=== PATIENT | female | born 1965 ===

== ENCOUNTER 2018-10-07 11:28 | Emergency (ER) | payer OTHER ==
[2018-10-07 11:35] VITALS: TEMP 98
[2018-10-07 11:37] VITALS: BMI 42.7
--- NOTE | 2018-10-07 13:04 | ED PDOC ---
HPI: Psych/Substance Abuse Time Seen by Provider: 10/07/18 12:17 Chief Complaint (Nursing): Psychiatric Evaluation Chief Complaint (Provider): Depression History Per: Patient History/Exam Limitations: no limitations Onset/Duration Of Symptoms: Days Additional Complaint(s): 53 yo female with history of depression presents for evaluation of depression. Pt states she has not taken her medications for depression and anxiety in the last month. Pt called PMD and was told she had to see her psychiatrist at [facility]. Pt went in today for appointment. PT states she was tearful during appointment. Pt was sent to ER for psychiatric evaluation. Past Medical History Reviewed: Historical Data, Nursing Documentation, Vital Signs Vital Signs: Last Vital Signs Temp 98 F 10/07/18 11:33 Pulse 88 10/07/18 11:33 Resp 18 10/07/18 11:33 BP 156/93 H 10/07/18 11:33 Pulse Ox 98 10/07/18 11:33 - Medical History PMH: Arthritis - Surgical History Surgical History: No Surg Hx - Family History Family History: States: Unknown Family Hx - Living Arrangements Living Arrangements: With Family - Social History Current smoker - smoking cessation education provided: No - Home Medications Home Medications: Ambulatory Orders Medication Instructions Recorded Amoxicillin 875 mg PO BID #20 tab 12/11/15 Fluticasone Propionate [Flonase] 4 spr IN DAILY #0 bottle 12/11/15 Guaifenesin/Pseudoephedrne HCl 1 ter PO BID PRN #20 ter 12/11/15 [Mucinex D 600 mg-60 mg] Cyclobenzaprine [Cyclobenzaprine 10 mg PO BID #15 tab 09/24/16 HCl] Ketorolac Tromethamine [Toradol] 10 mg PO BID #30 tab 09/24/16 Clonazepam [Klonopin] 0.5 mg PO DAILY PRN #7 tablet 10/07/18 Mirtazapine [Remeron] 15 mg PO HS #7 tablet 10/07/18 Sertraline [Zoloft] 50 mg PO QAM #7 tab 10/07/18 - Allergies Allergies/Adverse Reactions: Allergies Allergy/AdvReac Type Severity Reaction Status Date / Time No Known Allergies Allergy Verified 09/24/16 02:20 Review of Systems ROS Statement: Except As Marked, All Systems Reviewed And Found Negative Constitutional: Negative for: Fever, Chills Cardiovascular: Negative for: Chest Pain, Palpitations Respiratory: Negative for: Cough, Shortness of Breath Gastrointestinal: Negative for: Nausea, Vomiting, Abdominal Pain Neurological: Negative for: Weakness, Numbness Psych: Positive for: Depression. Negative for: Anxiety, Psychosis, Suicidal ideation, Withdrawal Physical Exam - Reviewed Nursing Documentation Reviewed: Yes Vital Signs Reviewed: Yes - Physical Exam Appears: Positive for: Well, Non-toxic, No Acute Distress Head Exam: Positive for: ATRAUMATIC, NORMAL INSPECTION, NORMOCEPHALIC Skin: Positive for: Normal Color, Warm, DRY Eye Exam: Positive for: Normal appearance ENT: Positive for: Normal ENT Inspection Neck: Positive for: Normal, Painless ROM Cardiovascular/Chest: Positive for: Regular Rate, Rhythm Respiratory: Positive for: Normal Breath Sounds. Negative for: Accessory Muscle Use, Respiratory Distress Back: Positive for: Normal Inspection Extremity: Positive for: Normal ROM Neurologic/Psych: Positive for: Alert, Oriented - ECG O2 Sat by Pulse Oximetry: 98 Pulse Ox Interpretation: Normal Medical Decision Making Medical Decision Making: Crisis evaluation completed. Disposition - Clinical Impression Clinical Impression: Depression - Patient ED Disposition Is Patient to be Admitted: No Counseled Patient/Family Regarding: Diagnosis, Need For Followup, Rx Given - Disposition Referrals: [facility] [Outside] Disposition: Routine/Home Disposition Time: 13:02 Condition: GOOD Prescriptions: Clonazepam [Klonopin] 0.5 mg PO DAILY PRN #7 tablet PRN Reason: Anxiety Mirtazapine [Remeron] 15 mg PO HS #7 tablet Sertraline [Zoloft] 50 mg PO QAM #7 tab Instructions: Depression, Adult (DC)
[2018-10-07 13:11] VITALS: BP 124/68; PULSE 74; RESP 16
[2018-10-07 13:13] VITALS: O2SAT 98
== END 2018-10-07 13:09 | disposition home or self-care (01) ==
LOC: H.ER 11:28
DX: F32.9 Major depressive disorder, single episode, unspecified (principal); Z13.31 Encounter for screening for depression; Z79.899 Other long term (current) drug therapy